=== PATIENT | male | born 1990 | race Caucasian/White ===

== ENCOUNTER 2017-06-09 20:20 | Emergency (ER) | payer SELFPAY ==
[2017-06-09 20:27] VITALS: BP 137/98; PULSE 75; TEMP 97.7; BMI 32.1
--- NOTE | 2017-06-09 21:32 | PDOC ---
History of Present Illness - General Chief Complaint: Penile Drainage Stated Complaint: EVALUATION Time Seen by Provider: 06/09/17 21:06 History Source: Patient Exam Limitations: No Limitations - History of Present Illness Initial Comments: 06/09/17 21:32 My chief complaint: Redness up penis History of present illness: Patient is a 26-year-old male with a history of childhood asthma here today complaining of redness under foreskin of penis on around Mario on penis for 3 weeks. Patient reports that he masturbates 4-5 times a day and started to develop redness patient started to apply hydrocortisone to area. Patient does not have any open areas of penis patient denies any history of herpetic lesions of penis. Patient denies any penile discharge. Patient denies any testicular pain. Patient is sexually active with his boyfriend only. Timing/Duration: getting worse Severity: mild Associated Symptoms: reports: other (erythema under foreskin and mario of penis ) Past History - Past Medical History Allergies/Adverse Reactions: Allergies Allergy/AdvReac Type Severity Reaction Status Date / Time No Known Allergies Allergy Verified 11/01/16 19:21 Home Medications: Ambulatory Orders Nystatin Cream [Mycostatin Cream -] 1 applic TP TID #30 applic 06/09/17 Asthma: Yes (CHILDHOOD) - Immunization History Immunization Up to Date: Yes - Suicide/Smoking/Psychosocial Hx Smoking Status: No Smoking History: Current some day smoker Have you smoked in the past 12 months: No Number of Cigarettes Smoked Daily: 1 If you are a former smoker, when did you quit?: 2 months ago Information on smoking cessation initiated: No Hx Alcohol Use: No Drug/Substance Use Hx: No Substance Use Type: None, Marijuana Review of Systems - Review of Systems Able to Perform ROS?: Yes Constitutional: No: Symptoms Reported HEENTM: No: Symptoms Reported Respiratory: No: Symptoms reported Cardiac (ROS): No: Symptoms Reported ABD/GI: No: Symptoms Reported : No: Symptoms Reported Integumentary: Yes: Erythema (under foreskin and around mario of penis 3 weeks) *Physical Exam - Vital Signs Last Vital Signs Temp Pulse Resp BP Pulse Ox 97.7 F 75 18 137/98 100 06/09/17 20:26 06/09/17 20:26 06/09/17 20:26 06/09/17 20:26 06/09/17 20:26 - Physical Exam Respiratory/Chest: positive: Lungs Clear, Normal Breath Sounds. negative: Chest Tender, Respiratory Distress Cardiovascular: positive: Regular Rhythm, Regular Rate, S1, S2 Male Genitalia: positive: normal genitalia (with exception of erythema foreskin and mario of penis, no lesions noted), other (uncircumized). negative: discharge, testicular tenderness, testicular mass, epididymus tender, inguinal hernia, hernia, hematuria Medical Decision Making - Medical Decision Making 06/09/17 21:34 Patient is a 26-year-old male with a history of childhood asthma here today complaining of redness under foreskin of penis on around Mario on penis for 3 weeks. Patient reports that he masturbates 4-5 times a day and started to develop redness patient started to apply hydrocortisone to area. Patient does not have any open areas of penis patient denies any history of herpetic lesions of penis. Patient denies any penile discharge. Patient denies any testicular pain. Patient is sexually active with his boyfriend only. Patient also reports having a foul-smelling underneath his foreskin. skin irritation penis balanitis PLAN: Patient instructed to stop using hydrocortisone cream on his penis Nystatin cream apply tid reddened area on penis 06/09/17 21:34 *DC/Admit/Observation/Transfer Diagnosis at time of Disposition: Balanitis - Discharge Dispostion Disposition: HOME Condition at time of disposition: Stable - Patient Instructions Additional Instructions: Do not apply hydrocortisone cream to sensitive skin and your penis Return to emergency room if symptoms worsen or new symptoms develop Try to refrain from touching the area as much as possible Patient voiced understanding of discharge instructions and all questions were answered
== END 2017-06-09 21:44 | disposition home or self-care (01) ==
LOC: JERFT 20:20
DX: N48.1 Balanitis (principal); F17.210 Nicotine dependence, cigarettes, uncomplicated
CPT/HCPCS: 99281-25

== ENCOUNTER 2017-10-02 10:21 | Emergency (ER) | payer OTHER ==
[2017-10-02 10:39] VITALS: BP 146/76; PULSE 79; TEMP 98.8; BMI 35.5
[2017-10-02] MEDS ORDERED: KETOROLAC TROMETHAMINE 60 MG/2 ML VIAL IM ONE (11:16)
[2017-10-02] MEDS ORDERED: KETOROLAC TROMETHAMINE 60 MG/2 ML VIAL ONE (11:23)
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
--- NOTE | 2017-10-05 11:45 | EKG ---
Test Reason : Blood Pressure : / mmHG Vent. Rate : 075 BPM Atrial Rate : 075 BPM P-R Int : 180 ms QRS Dur : 088 ms QT Int : 390 ms P-R-T Axes : 035 041 039 degrees QTc Int : 435 ms NORMAL SINUS RHYTHM NORMAL ECG WHEN COMPARED WITH ECG OF 03-JUL-2013 10:20, NO SIGNIFICANT CHANGE WAS FOUND Confirmed by ELMIRA REBOLLEDO MD ([id number]) on 10/05/2017 11:44:42 AM Referred By: Confirmed By:ELMIRA REBOLLEDO MD
== END 2017-10-02 11:41 | disposition home or self-care (01) ==
LOC: JER 10:21 → JERFT 10:21
PROC: 3E0233Z Introduction of Anti-inflammatory into Muscle, Percutaneous Approach (ICD-10-PCS; principal; 2017-10-02)
DX: S13.4XXA Sprain of ligaments of cervical spine, initial encounter (principal); S60.812A Abrasion of left wrist, initial encounter; S60.811A Abrasion of right wrist, initial encounter; S60.512A Abrasion of left hand, initial encounter; S60.511A Abrasion of right hand, initial encounter; V43.52XA Car driver injured in collision with other type car in traffic accident, initial encounter; W22.11XA Striking against or struck by driver side automobile airbag, initial encounter; Y92.414 Local residential or business street as the place of occurrence of the external cause; Y93.89 Activity, other specified; Y99.8 Other external cause status
CPT/HCPCS: 93005; 93010; 99281-25

== ENCOUNTER 2018-09-26 11:04 | Emergency (ER) | payer SELFPAY ==
[2018-09-26 11:20] VITALS: BP 134/88; PULSE 85; TEMP 97.5; BMI 39.1
[2018-09-26 12:06] LABS: URINE APPEARANCE CLEAR; URINE BILIRUBIN NEGATIVE (<2.0 mg/dL); URINE COLOR YELLOW; URINE GLUCOSE (UA) NEGATIVE (NEGATIVE); URINE KETONE NEGATIVE (NEGATIVE); URINE LEUK ESTERASE NEGATIVE (NEGATIVE); URINE NITRITE NEGATIVE (NEGATIVE); URINE PROTEIN NEGATIVE (NEGATIVE); URINE UROBILINOGEN NEGATIVE mg/dL (0.2-1.0)
--- NOTE | 2018-09-26 12:23 | PDOC ---
History of Present Illness - General Chief Complaint: Pain Stated Complaint: PAIN Time Seen by Provider: 09/26/18 11:56 History Source: Patient Exam Limitations: Clinical Condition - History of Present Illness Initial Comments: 09/26/18 12:18 Patient with no significant past medical history present with complaint of 2 weeks history of intermittent right testicular pain and scrotal swelling and now with intermittent lower back pain. Patient is sexually active with one male partner. Patient uncircumcised. Patient denies pain no discharge or pain. He denies unite frequency or dysuria. Patient denies any other symptoms Timing/Duration: other (2 weeks) Past History - Past Medical History Allergies/Adverse Reactions: Allergies Allergy/AdvReac Type Severity Reaction Status Date / Time No Known Allergies Allergy Verified 09/26/18 11:11 Home Medications: Ambulatory Orders Doxycycline Hyclate 100 mg PO BID 7 Days #14 capsule 09/26/18 Asthma: Yes (CHILDHOOD) CVA: No COPD: No - Immunization History Immunization Up to Date: Yes - Suicide/Smoking/Psychosocial Hx Smoking Status: No Smoking History: Never smoked Have you smoked in the past 12 months: No Number of Cigarettes Smoked Daily: 1 If you are a former smoker, when did you quit?: 2 months ago Hx Alcohol Use: No Drug/Substance Use Hx: No Substance Use Type: None, Marijuana Review of Systems - Review of Systems Able to Perform ROS?: Yes Is the patient limited Divehi proficient: No Constitutional: No: Chills, Fever HEENTM: No: Symptoms Reported Respiratory: No: Symptoms reported Cardiac (ROS): No: Symptoms Reported ABD/GI: No: Nausea, Vomiting, Abdominal cramping : Yes: See HPI, Testicular Swelling, Testicular Pain. No: Burning, Dysuria, Discharge, Frequency, Flank Pain, Urgency, Lesions Musculoskeletal: Yes: Back Pain (intermittent b/l lower back) All Other Systems: Reviewed and Negative *Physical Exam - Vital Signs Last Vital Signs Temp Pulse Resp BP Pulse Ox 97.5 F L 85 20 134/88 97 09/26/18 11:11 09/26/18 11:11 09/26/18 11:11 09/26/18 11:11 09/26/18 11:11 - Physical Exam Comments: 09/26/18 12:21 GENERAL: Well developed, well nourished. Awake and alert. No acute distress. NECK: Supple. Full ROM. CARDIOVASCULAR: Regular rate and rhythm. No murmurs, rubs, or gallops. Distal pulses are 2+ and symmetric. PULMONARY: No evidence of respiratory distress. Lungs clear to auscultation bilaterally. No wheezing, rales or rhonchi. ABDOMINAL: Soft. Non-tender. Non-distended. No rebound or guarding. No organomegaly. Normoactive bowel sounds. : Uncircumcised male. No pain no lesions. No scrotal swelling. Mild tenderness over right testicle. No evidence of scrotal hernia on exam. No CVA tenderness of back. SKIN: Warm and dry. Normal capillary refill. No rashes. No jaundice. NEUROLOGICAL: Alert, awake, appropriate. Gait is normal without ataxia. PSYCHIATRIC: Cooperative. Good eye contact. Appropriate mood General Appearance: Yes: Nourished, Appropriately Dressed. No: Apparent Distress Moderate Sedation - Procedure Monitoring Vital Signs: Procedure Monitoring Vital Signs Temperature 97.5 F L 09/26/18 11:11 Pulse Rate 85 09/26/18 11:11 Respiratory Rate 20 09/26/18 11:11 Blood Pressure 134/88 09/26/18 11:11 O2 Sat by Pulse Oximetry (%) 97 09/26/18 11:11 ED Treatment Course - RADIOLOGY Radiology Studies Ordered: Category Date Time Status SCROTUM AND CONTENTS US [US] Stat Ultrasound 09/26/18 12:12 Ordered Medical Decision Making - Medical Decision Making 09/26/18 12:23 Patient with no significant past medical history present with complaint of 2 weeks history of intermittent right testicular pain and scrotal swelling and now with intermittent lower back pain. Patient is sexually active with one male partner. Patient uncircumcised. Patient denies pain no discharge or pain. He denies unite frequency or dysuria. Exam significant for Uncircumcised male. No pain no lesions. No scrotal swelling. Mild tenderness over right testicle. No evidence of scrotal hernia on exam. No CVA tenderness of back. UA,Urine culture ordered. urine GC/CHL testing ordered. scrotal US ordered. Patient will be treated emperically with ceftriaxone 250mg IM for Epididymitis versus prostatitis. 09/26/18 13:18 Scrotal ultrasound shows small bilateral hydrocele with right greater than left and small cyst on epididymal. Patient is stable for treatment for possible STD with 250 mg IM ceftriaxone and one-week dose of doxycycline with urology follow- up. *DC/Admit/Observation/Transfer Diagnosis at time of Disposition: Hydrocele in adult, Testicular pain, right - Discharge Dispostion Disposition: HOME Condition at time of disposition: Stable Decision to Admit order: No - Prescriptions Prescriptions: Doxycycline Hyclate 100 mg PO BID 7 Days #14 capsule - Referrals Referrals: Mann Junior MD [Staff Physician] - - Patient Instructions Printed Discharge Instructions: DI for Hydrocele-Adult, DI for Hydrocelectomy- Adult Additional Instructions: Take medication as prescribed. Follow-up referred neurology as soon as possible. - Post Discharge Activity
== END 2018-09-26 13:35 | disposition home or self-care (01) ==
LOC: JERFT 11:04
DX: N43.2 Other hydrocele (principal)
CPT/HCPCS: 36415; 76870-TC; 81003; 87086; 87491; 87591; 99281-25

== ENCOUNTER 2019-09-30 09:12 | Emergency (ER) | payer SELFPAY ==
[2019-09-30 09:22] VITALS: BMI 36.0
--- NOTE | 2019-09-30 09:50 | PDOC ---
Documentation entered by Carlos Guevara SCRIBE, acting as scribe for Beth Angel MD. Beth Angel MD: This documentation has been prepared by the Ismael montalvo Daniel, SCRIBE, under my direction and personally reviewed by me in its entirety. I confirm that the documentation accurately reflects all work, treatment, procedures, and medical decision making performed by me. Attending Attestation - Resident Resident Name: Dilan Cowan - ED Attending Attestation I have performed the following: I have examined & evaluated the patient, The case was reviewed & discussed with the resident, I agree w/resident's findings & plan, Exceptions are as noted - HPI HPI: 09/30/19 09:48 29yo M hx GERD presents to the ED with 3 days of migrating chest pain. Reports CP is more of a pressure, with no associated SOB, N/V, diaphoresis, dizziness, focal weakness/numbness. Reports pain is not exertional and improves with belching. Pt reports this feels like previous GERD, but this has been more constant. States he often has similar pain in the mornig for many months. Denies pleuritic nature, calf tenderness, no recent travel or immobility. No trauma or heavy lifting. Smokes marijuana a few times a week. Has not seen his doctor for this pain in past. +family hx cardiac disease. Denies drug use. - Physicial Exam PE: 09/30/19 10:18 GENERAL: Awake, alert, and fully oriented, in no acute distress. Well appearing. EYES: PERRLA, EOMI, sclera anicteric, conjunctiva clear ENT: Oropharynx clear without exudates. Moist mucosa NECK: Normal ROM, supple, no lymphadenopathy, JVD, or masses LUNGS: Breath sounds equal, clear to auscultation bilaterally. No wheezes, and no crackles HEART: Regular rate and rhythm, normal S1 and S2, no murmurs, rubs or gallops ABDOMEN: Soft, nontender, normoactive bowel sounds. No guarding, no rebound. No masses EXTREMITIES: Normal range of motion, no edema. No clubbing or cyanosis. No cords, erythema, or tenderness NEUROLOGICAL: Normal speech, cranial nerves intact, equal strength and senation b/l SKIN: Warm, Dry, normal turgor, no rashes or lesions noted. - Medical Decision Making 09/30/19 10:20 29yo M hx GERD presents to the ED with CP Vitals wnl Exam wnl DDx includes ACS vs PE vs GERD vs MSK pain HS is 1, will obtain trop x2 No PE risk factors and history not concerning for PE, pt meets no PERC criteria Improvement with belching and poor diet speak to GERD as possible etiology, but does not typically cause migrating CP Pain is not reproducible, nor is there hx of trauma/heavy lifting so unlikely MSK Plan to treat as GERD, 2 trops 3 hours apart, reassess 09/30/19 15:53 2nd trop negative Pt significantly better, currently asymtomatic Plan for f/u with GI/PMD Eager for DC home I discussed the physical exam findings, ancillary test results and final diagnoses with the patient. I answered all of the patient's questions. The patient was satisfied with the care received and felt comfortable with the discharge plan and treatment plan. The patient will call their primary care physician within 24 hours to arrange follow-up and will return to the Emergency Department with any new, persistent or worsening symptoms. Heart Score/ECG Review - History History: Slightly suspicious - Electrocardiogram EKG: Normal - Age Age: </= 45 - Risk Factors Based on the list above the patient has:: 1-2 risk factors - Troponin Troponin: </= normal limit - Score Heart Score - Total: 1 #1 09/30/19 11:03 Twelve-lead EKG was performed and reviewed by me. NSR, rate 65, normal axis. + sinus arrhythmia 2/2 resp variation. No DAYNA or TWI
--- NOTE | 2019-09-30 09:53 | PDOC ---
History of Present Illness - General Chief Complaint: Chest Pain Stated Complaint: CHEST PAIN Time Seen by Provider: 09/30/19 09:36 History Source: Patient Exam Limitations: No Limitations - History of Present Illness Initial Comments: 09/30/19 10:20 29 yo M with a hx of GERD presents to the emergency department with chest pain that has been ongoing for 2 days. Per the patient, he states it was gradual onset, discomfort in quality, radiates from the center sternum to the left and right chest wall, and constant duration. Per the patient, he states this is similar to his previous GERD episodes, but those were temporal in nature, usually in the morning with self resolution unlike this current episode. Denies concurrent SOB, nausea, and vomiting. Per the patient, he does not use OTC medications for his GERD. Endorses smoking marijuana and his father had an SD at age 30. Denies the following: fevers, chills, SOB, headache, ears/nose/throat pain, abdominal pain, dysuria, recent travels, diarrhea, hematochezia, and leg pain/ swelling. Allergies: NKDA Past History - Past Medical History Allergies/Adverse Reactions: Allergies Allergy/AdvReac Type Severity Reaction Status Date / Time No Known Allergies Allergy Verified 09/30/19 09:22 Home Medications: Ambulatory Orders Pantoprazole Sodium [Protonix -] 40 mg PO DAILY #14 tablet.ec 09/30/19 Asthma: Yes (CHILDHOOD) CVA: No COPD: No - Immunization History Immunization Up to Date: Yes - Psycho Social/Smoking Cessation Hx Smoking Status: No Smoking History: Never smoked Have you smoked in the past 12 months: No Number of Cigarettes Smoked Daily: 1 If you are a former smoker, when did you quit?: 2 months ago Hx Alcohol Use: No Drug/Substance Use Hx: No Substance Use Type: None, Marijuana Review of Systems - Review of Systems Able to Perform ROS?: Yes Is the patient limited Tajik proficient: No Constitutional: No: Chills, Diaphoresis, Fever HEENTM: No: Eye Pain, Ear Pain, Nose Pain, Throat Pain, Mouth Pain Respiratory: No: Cough, Shortness of Breath, Hemoptysis Cardiac (ROS): Yes: Chest Pain. No: Lightheadedness, Palpitations, Syncope ABD/GI: No: Constipated, Diarrhea, Nausea, Rectal Bleeding, Vomiting, Tarry Stools : No: Dysuria, Discharge, Incontinence, Pain, Urgency Musculoskeletal: No: Back Pain, Joint Pain, Neck Pain Integumentary: No: Bruising, Flushing, Rash Neurological: No: Headache, Numbness, Tingling, Tremors Psychiatric: No: Change in Appetite Endocrine: No: Unexplained Weight Loss Hematologic/Lymphatic: No: Anemia *Physical Exam - Vital Signs Last Vital Signs Temp Pulse Resp BP Pulse Ox 97.8 F 66 18 136/89 99 09/30/19 09:20 09/30/19 09:20 09/30/19 09:20 09/30/19 09:20 09/30/19 09:20 - Physical Exam General Appearance: Yes: Nourished, Appropriately Dressed, Obese. No: Apparent Distress, Intoxicated HEENT: positive: EOMI, CHARISSE, Normal Voice, Symmetrical, Pharynx Normal, Hearing Grossly Normal. negative: Pale Conjunctivae, Scleral Icterus (R), Scleral Icterus (L), Muffled/Hoarse voice, Pharyngeal Erythema, Tonsillar Exudate, Tonsillar Erythema, Nasal Congestion, Excessive drooling Neck: positive: Trachea midline, Supple. negative: Tender, Lymphadenopathy (R) , Lymphadenopathy (L), Tender lateral, Tender midline Respiratory/Chest: positive: Lungs Clear, Normal Breath Sounds. negative: Chest Tender, Respiratory Distress, Accessory Muscle Use, Crackles, Rales, Rhonchi, Stridor Cardiovascular: positive: Regular Rhythm, Regular Rate, S1, S2. negative: Systolic Murmur Gastrointestinal/Abdominal: positive: Normal Bowel Sounds, Flat, Soft. negative : Tender, Distended, Guarding, Rebound, Tenderness, Hernia, Mass Lymphatic: negative: Adenopathy Musculoskeletal: positive: Normal Inspection. negative: CVA Tenderness, Vertebral Tenderness Extremity: positive: Normal Capillary Refill, Normal Inspection, Normal Range of Motion. negative: Tender Integumentary: positive: Normal Color, Dry, Warm Neurologic: positive: Fully Oriented, Alert, Normal Mood/Affect Heart Score/ECG Review - History History: Slightly suspicious - Electrocardiogram EKG: Normal - Age Age: </= 45 - Risk Factors Risk Factors Heart Score: Yes Smoking History, Yes Positive family hx of cardiac disease, Yes Hx Obesity Based on the list above the patient has:: >/=3 risk factors or Hx atherosclerotic disease - Troponin Troponin: </= normal limit - Score Heart Score - Total: 2 ED Treatment Course - LABORATORY CBC & Chemistry Diagram: 09/30/19 10:20 09/30/19 10:20 Medical Decision Making - Medical Decision Making 09/30/19 10:25 29 yo M with a hx of GERD presents to the emergency department with chest pain that has been ongoing for 2 days. Per the patient, he states it was gradual onset, discomfort in quality, radiates from the center sternum to the left and right chest wall, and constant duration. Initial vitals: Initial Vital Signs Temp Pulse Resp BP Pulse Ox 97.8 F 66 18 136/89 99 09/30/19 09:20 09/30/19 09:20 09/30/19 09:20 09/30/19 09:20 09/30/19 09:20 Work up: EKG: ventricular rate of 65 bpm, UT of 172 ms, QRS of 90 ms,. NSR with sinus arrhythmia without ST elevations or depressions. No TWI. Patient presents to the emergency department with chest pain. ddx includes ACS vs GERD vs msk pain vs gastritis vs PNA. Laboratory Tests 09/30/19 09/30/19 09/30/19 10:20 10:20 13:40 WBC 6.9 RBC 4.78 Hgb 14.9 Hct 43.5 MCV 91.0 MCH 31.1 MCHC 34.1 RDW 13.6 Plt Count 248 MPV 8.4 Absolute Neuts (auto) 5.0 Neutrophils % 71.8 D Lymphocytes % 19.9 D Monocytes % 5.9 Eosinophils % 2.1 Basophils % 0.3 Nucleated RBC % 0 Sodium 140 Potassium 4.2 Chloride 107 Carbon Dioxide 28 Anion Gap 5 L BUN 11.0 Creatinine 0.9 Est GFR (CKD-EPI)AfAm 132.37 Est GFR (CKD-EPI)NonAf 114.21 Random Glucose 81 Calcium 9.4 Total Bilirubin 0.6 AST 19 ALT 27 Alkaline Phosphatase 80 Creatine Kinase 130 Troponin I < 0.02 < 0.02 Total Protein 7.4 Albumin 4.3 trop negative x2. CXR negative for acute process patient had improvement in symptoms after administration of GI cocktail. patient likely is having GERD as symptoms abated with the administration of medications. with 2x negative troponin with normal eKG unlikely to be ACS. Patient was given strict return precautions. patient understood these precautions and agreed to adhere to them. Dispo: Discharge Discharge - Discharge Information Problems reviewed: Yes Clinical Impression/Diagnosis: GERD (gastroesophageal reflux disease) Condition: Improved Disposition: HOME - Admission No - Additional Discharge Information Prescriptions: Pantoprazole Sodium [Protonix -] 40 mg PO DAILY #14 tablet.ec - Follow up/Referral Referrals: [facility] [place] [facility] [employer] [Provider Group] Peter Mancilla MD [Staff Physician] - - Patient Discharge Instructions Patient Printed Discharge Instructions: DI for Gastroesophageal Reflux Disease (GERD), DI for Atypical Chest Pain, GERD Diet Additional Instructions: Follow up with a primary care doctor within 1-2 days. A referral has been provided to the clinic. We have also provided a referral to the farm truck driver for follow up within 1-2 weeks (Dr. Mancilla). Call tomorrow to make an appointment. Return to the emergency department if you have any new, worsening, or concerning symptoms - Post Discharge Activity Work/Back to School Note: Back to Work
[2019-09-30] MEDS ORDERED: FAMOTIDINE 20 MG/50 ML IVPB 20 MG/50 ML MG IVPB ONE ×2 (09:55→10:08)
[2019-09-30] MEDS ORDERED: ONDANSETRON 4 MG/2 ML VIAL IVPUSH ONE (09:55)
[2019-09-30] MEDS ORDERED: MAG HYDROX/AL HYDROX/SIMETH 30 ML UNIT-DOSE CUP PO ONE (09:55)
[2019-09-30] MEDS ORDERED: ACETAMINOPHEN 1000 MG/100 ML VIAL (NON FORMULARY) IVPB ONE (09:55)
[2019-09-30] MEDS ORDERED: ACETAMINOPHEN INJECTION 100 ML IVPB ONE (10:07)
[2019-09-30] MEDS ORDERED: ONDANSETRON 4 MG/2 ML VIAL ONE (10:08)
[2019-09-30] MEDS ORDERED: MAG HYDROX/AL HYDROX/SIMETH 30 ML UNIT-DOSE CUP ONE ×2 (10:08)
[2019-09-30 10:40] LABS: BASO % 0.3 % (0-2.0); EOS % 2.1 % (0-4.5); HEMATOCRIT 43.5 % (35.4-49); HEMOGLOBIN 14.9 GM/dL (11.7-16.9); LYMPH % 19.9 % (8-40); MCH 31.1 pg (25.7-33.7); MCHC 34.1 g/dl (32.0-35.9); MEAN PLT VOLUME 8.4 fl (7.5-11.1); MONO % 5.9 % (3.8-10.2); NEUT % 71.8 % (42.8-82.8); PLATELET COUNT 248 K/MM3 (134-434); RBC 4.78 M/mm3 (4.00-5.60); RDW 13.6 % (11.9-15.9); WHITE BLOOD COUNT 6.9 K/mm3 (4.0-10.0)
[2019-09-30 11:17] LABS: ALBUMIN 4.3 g/dl (3.4-5.0); ALK PHOS 80 U/L (45-117); ANION GAP 5 MMOL/L (8-16); BILIRUBIN,TOTAL 0.6 mg/dL (0.2-1); CALCIUM 9.4 mg/dL (8.5-10.1); CHLORIDE 107 mmol/L (98-107); CO2 28 mmol/L (21-32); CREATININE 0.9 mg/dL (0.55-1.3); GLUCOSE,RANDOM 81 mg/dL (74-106); POTASSIUM 4.2 mmol/L (3.5-5.1); SGOT/AST 19 U/L (15-37); SGPT/ALT 27 U/L (13-61); SODIUM 140 mmol/L (136-145); TOT PROT 7.4 g/dl (6.4-8.2)
[2019-09-30 15:54] VITALS: BP 128/84; PULSE 76; TEMP 98.2
--- NOTE | 2019-10-01 10:05 | EKG ---
Test Reason : Blood Pressure : / mmHG Vent. Rate : 065 BPM Atrial Rate : 065 BPM P-R Int : 172 ms QRS Dur : 090 ms QT Int : 406 ms P-R-T Axes : 033 041 039 degrees QTc Int : 422 ms NORMAL SINUS RHYTHM WITH SINUS ARRHYTHMIA NORMAL ECG WHEN COMPARED WITH ECG OF 02-OCT-2017 10:32, NO SIGNIFICANT CHANGE WAS FOUND Confirmed by CHRISTINA VILLAR MD ([id number]) on 10/01/2019 10:05:03 AM Referred By: Confirmed By:CHRISTINA VILLAR MD
== END 2019-09-30 15:45 | disposition home or self-care (01) ==
LOC: JER 09:12
PROC: 3E033GC Introduction of Other Therapeutic Substance into Peripheral Vein, Percutaneous Approach (ICD-10-PCS; principal; 2019-09-30)
PROC: 3E033NZ Introduction of Analgesics, Hypnotics, Sedatives into Peripheral Vein, Percutaneous Approach (ICD-10-PCS; 2019-09-30)
PROC: 3E033GC Introduction of Other Therapeutic Substance into Peripheral Vein, Percutaneous Approach (ICD-10-PCS; 2019-09-30)
DX: K21.9 Gastro-esophageal reflux disease without esophagitis (principal)
CPT/HCPCS: 36415; 71045-TC-FY; 80053; 82550; 84484; 85025; 93005; 93010; 99283-25; J0131

== ENCOUNTER 2020-06-13 09:19 | Emergency (ER) | payer OTHER ==
[2020-06-13 09:37] VITALS: BMI 34.4
--- OUTSIDE RECORDS SUMMARY | 2020-06-13 09:40 | XMS ---
:1990 Author Organization [facility] Support Name Relationship Address Phone ANGELITA HERNANDEZ PARTNER [address] [place] [address] ANA HERNANDEZ PARTNER [address] [place] [address] [employer] K[employer] Unavailable [address] [phone] [place] [address] SHERI HICKS MOTHER [address] [place] [address] Re-disclosure Warning The records that you are about to access may contain information from federally- assisted alcohol or drug abuse programs. If such information is present, then the following federally mandated warning applies: This information has been disclosed to you from records protected by federal confidentiality rules (42 CFR part 2). The federal rules prohibit you from making any further disclosure of this information unless further disclosure is expressly permitted by the written consent of the person to whom it pertains or as otherwise permitted by 42 CFR part 2. A general authorization for the release of medical or other information is NOT sufficient for this purpose. The Federal rules restrict any use of the information to criminally investigate or prosecute any alcohol or drug abuse patient.The records that you are about to access may contain highly sensitive health information, the redisclosure of which is protected by Article 27-F of the [facility] Public Health law. If you continue you may haveaccess to information: Regarding HIV / AIDS; Provided by facilities licensed or operated by the [facility] Office of Mental Health; or Provided by the [facility] Office for People With Developmental Disabilities. If such information is present, then the following [facility] mandated warning applies: This information has been disclosed to you from confidential records which are protected by state law. State law prohibits you from making any further disclosure of this information without the specific written consent of the person to whom it pertains, or as otherwise permitted by law. Any unauthorized further disclosure in violation of state law may result in a fine or penitentiary sentence or both. A general authorization for the release of medical or other information is NOT sufficient authorization for further disclosure. Insurance Providers Payer name Policy type Policy ID Covered Covered libertarian's Policy P arielle / Coverage libertarian ID relationship to [facility] [employer] type abraham SELF PAY SP INSURANCE Results ID Date Data Source [id number] 05/12/2020 08:39:00 AM EDT [facility] Name Value Range Interpretation Code Description Data Miriam rce(s) Supporting Document(s ) SARS-COV-2 [facility] QL BLAIR+PROBE [facility] and reported by [facility]. ID Date Data Source [id number] 05/06/2020 01:45:00 PM EDT [facility] Name Value Range Interpretation Code Description Data Miriam rce(s) Supporting Document(s ) SARS-COV-2 [facility] QL BLAIR+PROBE This lab was ordered by [facility] and reported by [employer]. ID Date Data Source [id number] 04/18/2020 09:02:00 AM EDT [facility] Name Value Range Interpretation Code Description Data Miriam rce(s) Supporting Document(s ) SARS-COV-2 [facility] QL BLAIR+PROBE This lab was ordered by [facility] and reported by [facility]. ID Date Data Source [id number] 03/29/2020 01:02:00 PM EDT [facility] Name Value Range Interpretation Code Description Data Miriam rce(s) Supporting Document(s ) SARS-CoV-2 [facility] RNA Resp Ql BLAIR+probe This lab was ordered by [facility] and reported by [facility]. ID Date Data Source [id number] 03/29/2020 12:00:00 AM EDT [facility] Name Value Range Interpretation Code Description Data Miriam rce(s) Supporting Document(s ) SARS-CoV-2 [facility] RdRp gene result [facility] and reported by [facility]. ID Date Data Source [id number] 03/22/2020 10:33:00 AM EDT [facility] Name Value Range Interpretation Code Description Data Miriam rce(s) Supporting Document(s ) COV2 [facility] This lab was ordered by [address] and reported by [facility]. Procedure
--- NOTE | 2020-06-13 09:52 | PDOC ---
History of Present Illness - General Chief Complaint: Rectal Bleed Stated Complaint: bowel issues Time Seen by Provider: 06/13/20 09:51 History Source: Patient Exam Limitations: No Limitations - History of Present Illness Initial Comments: 06/13/20 09:51 Joni Ray is a 30M with PMH gastritis on Pepcid presenting with complaint of jelly-like and blank stools. Two days ago patient ate a lot of raspberry jelly pastries. Yesterday was patient's birthday, ate a lot of pulled pork and other comfort foods, no alcohol, no drugs. Did not have any abdominal pain, nausea, vomiting, chest pain, SOB, diarrhea, urinary symptoms. Had jelly-like stools, as if it was raspberry jelly, did a Google search about symptoms and believes them to be currant jelly. Today woke up, again no abd pain or other symptoms, had black/brown stools, soft, no blood. Did not take Pepto Bismol or iron supplements. Has not seen GI for gastritis, just takes Pepcid PRN but has not been having any symptoms. NKDA. No PSH. Denies alcohol/drugs/tobacco. Past History - Medical History Allergies/Adverse Reactions: Allergies Allergy/AdvReac Type Severity Reaction Status Date / Time No Known Allergies Allergy Verified 06/13/20 09:30 Home Medications: Ambulatory Orders Pantoprazole Sodium [Protonix -] 40 mg PO DAILY #14 tablet.ec 09/30/19 Asthma: Yes (CHILDHOOD) CVA: No COPD: No - Immunization History Immunization Up to Date: Yes - Psycho-Social/Smoking History Smoking Status: No Smoking History: Current every day smoker Have you smoked in the past 12 months: Yes Number of Cigarettes Smoked Daily: 0 If you are a former smoker, when did you quit?: 2 months ago Information on smoking cessation initiated: Yes - Substance Abuse Hx (Audit-C & DAST Scrn) How often the patient has a drink containing alcohol: Monthly or less Number of drinks the patient has on a typical day: 1 or 2 How often the patient has six or more drinks on one occasion: Never Score: In Men: 4 or > Positive; In Women: 3 or > Positive: 1 Screen Result (Pos requires Nsg. Audit-10AR): Negative In the last yr the pt used illegal drug/Rx for NonMed reason: Yes Score: Yes response is considered Positive: 1 Screen Result (Positive result requires Nsg. DAST-10): Positive Review of Systems - Review of Systems Able to Perform ROS?: Yes Constitutional: No: Symptoms Reported HEENTM: No: Symptoms Reported Respiratory: No: Symptoms reported Cardiac (ROS): No: Symptoms Reported ABD/GI: Yes: Tarry Stools. No: Constipated, Diarrhea, Nausea, Poor Appetite, Poor Fluid Intake, Vomiting : No: Symptoms Reported Musculoskeletal: No: Symptoms Reported Integumentary: No: Symptoms Reported Neurological: No: Symptoms reported Endocrine: No: Symptoms Reported Hematologic/Lymphatic: No: Symptoms Reported All Other Systems: Reviewed and Negative *Physical Exam - Vital Signs Last Vital Signs Temp Pulse Resp BP Pulse Ox 98.5 F 89 18 120/68 100 06/13/20 09:25 06/13/20 09:25 06/13/20 09:25 06/13/20 09:25 06/13/20 09:25 - Physical Exam General Appearance: Yes: Nourished, Appropriately Dressed, Other (resting in bed in NAD, talking on phone). No: Apparent Distress HEENT: positive: EOMI, CHARISSE, Normal Voice, Symmetrical, Pharynx Normal, Hearing Grossly Normal. negative: Scleral Icterus (R), Scleral Icterus (L), Pharyngeal Erythema, Tonsillar Exudate, Tonsillar Erythema Neck: positive: Trachea midline, Normal Thyroid, Supple. negative: Tender, Rigid, Lymphadenopathy (R), Lymphadenopathy (L), Tender lateral, Tender midline Respiratory/Chest: positive: Lungs Clear, Normal Breath Sounds. negative: Chest Tender, Respiratory Distress, Accessory Muscle Use, Crackles, Rales, Rhonchi, Stridor, Wheezing Cardiovascular: positive: Regular Rhythm, Regular Rate. negative: Murmur Gastrointestinal/Abdominal: positive: Normal Bowel Sounds, Flat, Soft. negative: Tender, Organomegaly, Pulsatile Mass, Protuberent, Distended, Guarding, Rebound Rectal Exam: positive: normal exam, NL Prostate, normal rectal tone. negative: hemorrhoids Musculoskeletal: positive: Normal Inspection. negative: CVA Tenderness, Decreased Range of Motion, Vertebral Tenderness Extremity: positive: Normal Capillary Refill, Normal Inspection, Normal Range of Motion, Pelvis Stable. negative: Tender, Pedal Edema, Swelling, Calf Tenderness Integumentary: positive: Normal Color, Dry, Warm Neurologic: positive: Fully Oriented, Alert, Normal Mood/Affect Medical Decision Making - Medical Decision Making 06/13/20 09:51 Patient has PMH gastritis and presents with jelly like stool followed by dark stools, here for evaluation of possible rectal bleeding. Has had no abdominal pain, N/V, SOB, constipation, or hematochezia. Getting FOBT for eval rectal bleeding, if positive consider labs evaluation, but low suspicion of true pathology. If stable can be discharged home with PMD/GI f/u. 06/13/20 11:43 FOBT negative. Can be d/c home with PMD/GI f/u. Discharge - Discharge Information Problems reviewed: Yes Clinical Impression/Diagnosis: Dark stools Condition: Good Disposition: HOME - Follow up/Referral Referrals: Tyrese Pretty DO [Staff Physician] - Vlad Jordan MD [Staff Physician] - Joni Anderson MD [Staff Physician] - [facility] [facility] [place] [Provider Group] - Patient Discharge Instructions Patient Printed Discharge Instructions: DI for Rectal Bleeding Additional Instructions: Today you were seen for possible rectal bleeding. Your test does not show any problems. You likely just ate some foods that are making your stools darker. At home, continue to take your Pepcid. If you have any more dark or red stools, abdominal pain, feel dizzy, or have any other new or concerning symptoms, please return to the emergency room. Otherwise, we have given you a referral to a GI doctor, please follow-up with them or your primary doctor in the next few days for further care. - Post Discharge Activity
--- NOTE | 2020-06-13 11:43 | PDOC ---
Documentation entered by Noel Rod SCRIBE, acting as scribe for Francisco Javier King MD. Francisco Javier King MD: This documentation has been prepared by the Viola montalvo Angel, SCRIBE, under my direction and personally reviewed by me in its entirety. I confirm that the documentation accurately reflects all work, treatment, procedures, and medical decision making performed by me. Attending Attestation - Resident Resident Name: Paco Duvall - ED Attending Attestation I have performed the following: I have examined & evaluated the patient, The case was reviewed & discussed with the resident, I agree w/resident's findings & plan, Exceptions are as noted - HPI HPI: 06/13/20 11:04 The patient is a 30 year old male with a significant past medical history of gastritis who presents to the ED with blackish/brown stool this morning. The patient notes eating a lot of jelly pastries 2 days ago and when describing his stool he states it was jelly like but denied any abdominal pain or discomfort. The patient states yesterday was his birthday and he ate pulled pork and other constitution party foods but denies drinking any alcohol or drug use. This morning, he had black/brownish stool but no abdominal pain, nausea, vomiting or urinary issues. The patient did have normal bowel movements today. The patient denies abdominal pain, nausea, vomiting, or any other symptoms. - Physicial Exam PE: 06/13/20 11:39 General: No acute distress, well appearing ABd: soft non tender. no rebound/guarding, no cva tenderness REctal exam: per resident - Medical Decision Making 06/13/20 11:40 stool guaiac negative will dc with PMD/GI fu return precautions were discussed Discharge - Discharge Information Problems reviewed: Yes Clinical Impression/Diagnosis: Dark stools Condition: Good Disposition: HOME - Admission No - Follow up/Referral Referrals: [facility] [place] [facility] [place] [Provider Group] Tyrese Pretty DO [Staff Physician] - Vlad Jordan MD [Staff Physician] - Joni Anderson MD [Staff Physician] - - Patient Discharge Instructions Patient Printed Discharge Instructions: DI for Rectal Bleeding Additional Instructions: Today you were seen for possible rectal bleeding. Your test does not show any problems. You likely just ate some foods that are making your stools darker. At home, continue to take your Pepcid. If you have any more dark or red stools, abdominal pain, feel dizzy, or have any other new or concerning symptoms, please return to the emergency room. Otherwise, we have given you a referral to a GI doctor, please follow-up with them or your primary doctor in the next few days for further care. - Post Discharge Activity
[2020-06-13 11:53] VITALS: BP 125/62; PULSE 78; TEMP 98.2
== END 2020-06-13 11:52 | disposition home or self-care (01) ==
LOC: JER 09:19
DX: K92.1 Melena (principal)
CPT/HCPCS: 36415; 82272; 99283-25

== ENCOUNTER 2020-11-14 09:31 | Emergency (ER) | payer OTHER ==
[2020-11-14 09:36] VITALS: BP 136/94; PULSE 93; TEMP 97.2; BMI 34.4
[2020-11-14] MEDS ORDERED: ACETAMINOPHEN/CAFFEINE/BUTALBITAL 1 TAB PO PRN (10:04)
[2020-11-14] MEDS ORDERED: ACETAMINOPHEN/CAFFEINE/BUTALBITAL 1 TAB ONE (10:16)
[2020-11-14 10:46] LABS: BASO % 0.5 % (0-2.0); EOS % 3.4 % (0-4.5); HEMATOCRIT 42.7 % (35.4-49); HEMOGLOBIN 14.6 GM/dL (11.7-16.9); LYMPH % 28.4 % (8-40); MCH 30.4 pg (25.7-33.7); MCHC 34.2 g/dl (32.0-35.9); MEAN CELL VOLUME 88.8 fl (80-96); MEAN PLT VOLUME 8.5 fl (7.5-11.1); MONO % 6.3 % (3.8-10.2); NEUT % 61.4 % (42.8-82.8); PLATELET COUNT 229 K/MM3 (134-434); RBC 4.81 M/mm3 (4.00-5.60); RDW 13.7 % (11.9-15.9); WHITE BLOOD COUNT 5.4 K/mm3 (4.0-10.0)
[2020-11-14 10:54] LABS: INR 0.97 (0.83-1.09)
[2020-11-14 10:57] LABS: ACTIVATED PTT 34.4 SECONDS (25.2-36.5)
[2020-11-14 11:11] LABS: POTASSIUM 4.3 mmol/L (3.5-5.1)
[2020-11-14 11:13] LABS: CALCIUM 9.3 mg/dL (8.5-10.1)
[2020-11-14 11:14] LABS: ALBUMIN 4.1 g/dl (3.4-5.0); BLOOD UREA NITROGEN 14.9 mg/dL (7-18)
[2020-11-14 11:19] LABS: BILIRUBIN,TOTAL 0.3 mg/dL (0.2-1)
== END 2020-11-14 11:30 | disposition home or self-care (01) ==
LOC: JER 09:31
DX: G44.209 Tension-type headache, unspecified, not intractable (principal)
CPT/HCPCS: 36415; 70450-TC; 80053; 85025; 85610; 85730; 99284-25

== ENCOUNTER 2020-12-09 21:23 | Emergency (ER) | payer OTHER ==
[2020-12-09 21:30] VITALS: BP 134/84; PULSE 86; TEMP 98.1; BMI 25.0
== END 2020-12-10 00:03 | disposition home or self-care (01) ==
LOC: JER 21:23
DX: T78.40XA Allergy, unspecified, initial encounter (principal)
CPT/HCPCS: 99282-25

== ENCOUNTER 2021-11-06 12:36 | Emergency (ER) | payer OTHER ==
[2021-11-06 12:44] VITALS: BP 114/73; PULSE 86; TEMP 97.9; BMI 27.6
[2021-11-06 13:22] LABS: PH,URINE 5.5 (5.0-8.0); URINE APPEARANCE CLEAR; URINE BILIRUBIN NEGATIVE (NEGATIVE); URINE COLOR YELLOW; URINE GLUCOSE (UA) NEGATIVE (NEGATIVE); URINE KETONE NEGATIVE (NEGATIVE); URINE LEUK ESTERASE NEGATIVE (NEGATIVE); URINE NITRITE NEGATIVE (NEGATIVE); URINE PROTEIN NEGATIVE (NEGATIVE); URINE UROBILINOGEN 0.2 mg/dL (0.2-1.0)
== END 2021-11-06 14:01 | disposition home or self-care (01) ==
LOC: JERFT 12:36
DX: R20.2 Paresthesia of skin (principal)
CPT/HCPCS: 36415; 81003; 87086; 87491; 87591; 99283-25

== ENCOUNTER 2024-03-02 00:43 | Emergency (ER) | payer OTHER ==
[2024-03-02 01:01] VITALS: BP 139/76; PULSE 70; RESP 20; TEMP 97.5; BMI 26.2
[2024-03-02] MEDS ORDERED: DIPHTH,PERTUSS(ACELL),TET 0.5 ML DISP.SYRIN IM ONE (01:34)
[2024-03-02] MEDS ORDERED: AMOX TR/POT CLAV 875MG/125MG TABLETS (FP) ONE (01:34)
[2024-03-02] MEDS: AMOX TR/POT CLAV 875MG/125MG TABLETS (FP) PO ONE (01:40)
[2024-03-02] MEDS: DIPHTH,PERTUSS(ACELL),TET 0.5 ML DISP.SYRIN IM ONE (01:40)
== END 2024-03-02 02:10 | disposition home or self-care (01) ==
LOC: JER 00:43
PROC: 3E0234Z Introduction of Serum, Toxoid and Vaccine into Muscle, Percutaneous Approach (ICD-10-PCS; principal; 2024-03-02)
DX: S81.832A Puncture wound without foreign body, left lower leg, initial encounter (principal); W54.0XXA Bitten by dog, initial encounter; Z23 Encounter for immunization
CPT/HCPCS: 90471; 90715; 99284-25